=== PATIENT | male | born 1970 | race Caucasian/White ===

== ENCOUNTER → 2017-08-11 | Emergency (ER) | payer OTHER ==
[~2017-08-11] VITALS: Ht 182.9 cm; Wt 101.6 kg
[~2017-08-11] MED LIST: LOSARTAN-HCTZ1 EAC1
== END | disposition home or self-care (01) ==
LOC: ER 20:01
DX: J11.1 Influenza due to unidentified influenza virus with other respiratory manifestations (principal)